=== PATIENT | female | born 1995 | race Caucasian/White ===

== ENCOUNTER 2024-02-15 20:10 | Emergency (ER) | payer OTHER ==
[2024-02-15 20:39] LABS: BASOPHILS PERCENT AUTO 0.5 % (0.0-1.0); EOSINOPHILS PERCENT AUTO 4.2 % (1.0-3.0); HEMATOCRIT 38.1 % (37.0-47.0); HEMOGLOBIN 12.4 g/dL (12.0-16.0); LYMPHOCYTES PERCENT AUTO 31.1 % (20.5-50.1); MEAN CORPUSCULAR HEMOGLOBIN 27.7 pg (27.0-34.0); MEAN CORPUSCULAR HGB CONC 32.5 g/dL (33.0-35.0); MONOCYTES PERCENT AUTO 8.5 % (2-8); NEUTROPHILS PERCENT AUTO 55.7 % (42.2-75.2); PLATELET COUNT,PLT 291 10^3/uL (150-450); RED BLOOD CELL COUNT 4.48 10^6/uL (4.2-5.4); WHITE BLOOD CELL COUNT,WBC 8.8 10^3/uL (5.0-10.0)
[2024-02-15 21:03] LABS: A/G RATIO 1.2; ALANINE AMINOTRANSFERASE,ALT 13 U/L (14-59); ALBUMIN 3.7 g/dL (3.4-5.0); ALKALINE PHOSPHATASE 54 U/L (46-116); ANION GAP 10.8 mEq/L (7-13); ASPARTATE AMNIOTRANSFERASE,AST 7 U/L (15-37); BILIRUBIN TOTAL 1.1 mg/dL (0.2-1.0); BLOOD UREA NITROGEN,BUN 15 mg/dL (7-18); CALCIUM 8.9 mg/dL (8.5-10.1); CARBON DIOXIDE,CO2 27 mmol/L (21-32); CHLORIDE,CL 104 mmol/L (98-107); CREATININE 0.88 mg/dL (0.55-1.02); EST CRCL DRUG DOSING (CG) 101.24 mL/min; GLUCOSE RANDOM 100 mg/dL (70-99); LIPASE 50 U/L (16-77); MAGNESIUM 1.7 mg/dL (1.8-2.4); POTASSIUM,K 3.8 mmol/L (3.5-5.1); PROTEIN TOTAL,TP 6.9 g/dL (6.4-8.2); SODIUM,NA 138 mmol/L (136-145)
[2024-02-15 21:05] LABS: ESTIMATED GFR 93 mL/min (>=60)
[2024-02-15 21:06] LABS: APPEARANCE,URINE SLIGHTLY CLOUDY (CLEAR); BILIRUBIN,URINE NEGATIVE (NEGATIVE); COLOR,URINE YELLOW (YELLOW); GLUCOSE,URINE NEGATIVE (NEGATIVE); KETONES,URINE NEGATIVE (NEGATIVE); LEUKOCYTE ESTERASE,URINE SMALL (NEGATIVE); NITRITE,URINE NEGATIVE (NEGATIVE); OCCULT BLOOD,URINE NEGATIVE (NEGATIVE); PROTEIN,URINE NEGATIVE (NEGATIVE); UROBILINOGEN,URINE 0.2 mg/dL (0.2-1.0)
[2024-02-15 21:37] LABS: BACTERIA,URINE MODERATE /HPF (0-FEW/HPF); EPITHELIAL CELLS,URINE MANY /HPF (NOT SEEN); RBC,URINE NOT SEEN /HPF (0-5)
[2024-02-15] MEDS: cefTRIAXone 1 GM Vial IVPUSH ONE (21:50)
[2024-02-15] MEDS: Magnesium Sulfate/Water 2 GM in Premix Bag 1 BAG IV ONE (21:55)
[2024-02-15] MEDS: Acetaminophen 325 MG Tab PO ONE (22:43)
== END 2024-02-15 23:56 | disposition home or self-care (01) ==
LOC: DL.ED 20:10
DX: R07.9 Chest pain, unspecified (principal); N39.0 Urinary tract infection, site not specified; E83.42 Hypomagnesemia
CPT/HCPCS: 36415; 71045; 80053; 81001; 81025; 83690; 83735; 84484; 85025; 85379; 87086; 93005; 93010; 96365; 96366; 96375; 99284; 99285-25; J0696; J3475

== ENCOUNTER 2024-04-25 20:37 | Emergency (ER) | payer OTHER | END 2024-04-25 21:21 | disposition home or self-care (01) | LOC: DL.ED 20:37 | DX: M62.830 Muscle spasm of back (principal) | CPT/HCPCS: 99283 ==